=== PATIENT | female | born 1980 | race Caucasian/White ===

== ENCOUNTER → 2016-09-24 | Outpatient (CLI) | payer BC ==
[~2016-09-24] MED LIST: CIPR500T4 PO; DICY20TA59 PO; FAMO-18 PO; HYDR-3498 PO; METR500T PO; ONDA4TAB14 PO
[2016-09-24 15:10] LABS: ADD SCAN DIFF NO
[2016-09-24 15:12] LABS: BASOPHIL # 0.1 10^3/ul (0.0-0.1); BASOPHILS % 0.8 % (0.0-2.0); EOSINOPHILS # 0.4 10^3/ul (0.0-0.5); EOSINOPHILS % 4.8 % (0.0-7.0); HEMATOCRIT 41.2 % (37.0-47.0); HEMOGLOBIN 14.1 g/dl (12.0-16.0); LYMPHOCYTES # 2.3 10^3/ul (0.8-2.9); LYMPHOCYTES % 26.3 % (15.0-51.0); MEAN CORPUSCULAR HEMOGLOBIN 31.6 pg (29.0-33.0); MEAN CORPUSCULAR HGB CONC 34.2 g/dl (32.0-37.0); MEAN CORPUSCULAR VOLUME 92.4 fl (82.0-101.0); MEAN PLATELET VOLUME 13.2 fl (7.4-10.4); MONOCYTE # 0.4 10^3/ul (0.3-0.9); MONOCYTES % 4.7 % (0.0-11.0); NEUTROPHIL # 5.5 10^3/ul (1.6-7.5); NEUTROPHILS % 63.3 % (39.0-77.0); PLATELET COUNT 192 10^3/UL (140-415); RED BLOOD COUNT 4.46 10^6/ul (4.20-5.40); RED CELL DISTRIBUTION WIDTH 12.7 % (11.5-14.5); WHITE BLOOD COUNT 8.7 10^3/ul (4.8-10.8)
[2016-09-24 15:26] LABS: IRON 61 ug/dl (35-150)
[2016-09-24 15:34] LABS: ALBUMIN 4.1 g/dl (3.3-4.9); ALBUMIN/GLOBULIN RATIO 1.17; BILIRUBIN,INDIRECT 0.1 mg/dl (0-1.1); BILIRUBIN,TOTAL 0.1 mg/dl (0.2-1.3); CREATININE 0.84 mg/dl (0.44-1.00); TOTAL PROTEIN 7.6 g/dl (6.1-8.1)
[2016-09-24 15:35] LABS: TOTAL IRON BINDING CAPACITY 372 ug/dl (241-421)
[2016-09-24 16:05] LABS: THYROID STIMULATING HORMONE 1.85 MIU/L (0.465-4.680)
== END | disposition home or self-care (01) ==
LOC: LAB 14:37
PROVIDERS: ATTEND Internal Medicine
DX: E34.9 Endocrine disorder, unspecified (principal)
CPT/HCPCS: 80053; 82607; 82652; 82670; 83001; 83036; 83540; 84439; 84443; 85025; 85651

== ENCOUNTER → 2016-11-12 | Outpatient (CLI) | payer BC ==
--- NOTE | 2016-11-13 15:59 | RADRPT ---
PROCEDURE: US Thyroid. CLINICAL INDICATION: Neck Mass TECHNIQUE: Multiple sonographic images of the thyroid were obtained. Transverse and sagittal imagi ng of the gland and gómez-thyroidal tissues was performed with a high frequency linear array transduc er. Color interrogation was performed as well. The images were reviewed on a PACS workstation. COMPARISON: No prior studies are available for comparison. FINDINGS: The thyroid gland demonstrates normal size, shape and echogenicity. The right lobe of the thyroid gland measures 4.1 x 1.7 x 0.3 cm. There is a 3 mm hypoechoic nodule in the lower pole of the right lobe of the thyroid gland. The left lobe of the thyroid gland measures 4.0 x 1.9 x 1.8 cm. In the lower pole of left lobe of thyroid gland there is a heterogeneous hypoechoic nodule which kimberly sures 1.7 x 0.9 x 0.9 cm without calcification. The isthmus is of normal thickness. SRU Consesus Criteria for Management of Thyroid Nodules: Solitary nodule with microcalcifications: Strongly consider ultrasound-guided FNA if > 1 cm. Solitary solid nodule (or almost entirely solid) or coarse calcifications: Strongly consider US-maicol ded FNA if > 1.5 cm. Solitary mixed solid and cystic or almost entirely cystic with solid mural component: Consider US-g uided FNA if > 2 cm. None of the above but substantial growth since prior US examination: Consider US-guided FNA. Almost entirely cystic and none of the above and no substantial growth (or no prior US): US-guided FNA probably unnecessary. Multiple nodules: Consider US-guided FNA of one or more nodules, with selection based on criteria f or solitary nodule. * FNA is likely unnecessary in diffusely enlarged gland with multiple nodules of similar US appearan ce. *Presence of abnormal lymph nodes overrides US features of thyroid nodule(s) and should prompt US-gu ided FNA. SRU Consensus Conference Statement: Management of Thyroid Nodules Detected at US. RADIOLOGY 2005;2 [id number] IMPRESSION: 1. 1.7 cm hypoechoic nodule in the lower pole of left lobe of thyroid gland. Fine needle aspiratio n is suggested for further evaluation. 2. 3 mm hypoechoic nodule in the lower pole of the right lobe of thyroid gland. Continued surveill ance is suggested. RPTAT: QQ .Tobias Mcwilliams MD, MD Date Time Electronically viewed and signed by .Tobias Mcwilliams MD, on 11/13/2016 15:59 .M/
== END | disposition home or self-care (01) ==
LOC: U/S 16:31
PROVIDERS: ATTEND Internal Medicine
DX: R22.1 Localized swelling, mass and lump, neck (principal)
CPT/HCPCS: 76536

== ENCOUNTER → 2016-12-03 | Outpatient (CLI) | payer BC ==
[2016-12-03 08:48] LABS: ADD SCAN DIFF NO; BASOPHIL # 0.1 10^3/ul (0.0-0.1); BASOPHILS % 0.9 % (0.0-2.0); EOSINOPHILS # 0.1 10^3/ul (0.0-0.5); EOSINOPHILS % 1.6 % (0.0-7.0); HEMATOCRIT 41.8 % (37.0-47.0); HEMOGLOBIN 14.8 g/dl (12.0-16.0); LYMPHOCYTES # 2.8 10^3/ul (0.8-2.9); LYMPHOCYTES % 34.8 % (15.0-51.0); MEAN CORPUSCULAR HGB CONC 35.4 g/dl (32.0-37.0); MEAN CORPUSCULAR VOLUME 90.5 fl (82.0-101.0); MEAN PLATELET VOLUME 12.9 fl (7.4-10.4); MONOCYTE # 0.4 10^3/ul (0.3-0.9); MONOCYTES % 4.4 % (0.0-11.0); NEUTROPHIL # 4.6 10^3/ul (1.6-7.5); NEUTROPHILS % 58.2 % (39.0-77.0); PLATELET COUNT 197 10^3/UL (140-415); RED BLOOD COUNT 4.62 10^6/ul (4.20-5.40); RED CELL DISTRIBUTION WIDTH 13.1 % (11.5-14.5); WHITE BLOOD COUNT 7.9 10^3/ul (4.8-10.8)
[2016-12-03 09:04] LABS: CREATININE 0.9 mg/dl (0.44-1.00)
[2016-12-03 09:06] LABS: INR 0.93; PARTIAL THROMBOPLASTIN TIME 31.4 Sec (25.0-35.0); PROTIME 12.5 Sec (12.2-14.2)
== END | disposition home or self-care (01) ==
LOC: LAB 08:23
PROVIDERS: ATTEND Internal Medicine
DX: E07.9 Disorder of thyroid, unspecified (principal)
CPT/HCPCS: 82565; 84520; 85025; 85610; 85730

== ENCOUNTER → 2017-08-09 | Outpatient (CLI) | END | disposition home or self-care (01) ==

== ENCOUNTER → 2018-07-25 | Outpatient (CLI) | payer BC ==
[~2018-07-25] MED LIST changes: -FAMO-18 PO; +FAMO-96 PO
== END | disposition home or self-care (01) ==
LOC: LAB 13:05
PROVIDERS: ATTEND Obstetrics & Gynecology
DX: N39.0 Urinary tract infection, site not specified (principal)
CPT/HCPCS: 87086

== ENCOUNTER → 2018-07-26 | Outpatient (CLI) | payer BC ==
[~2018-07-26] MED LIST changes: +IOHEXOL 300MG/ML 150 ML BTL ONE; +SOD CHLORIDE 0.9% 100 ML ONE
--- NOTE | 2018-07-26 15:50 | NUR ---
Procedure Ordered: CT ABD PEL W/WO Reason for Exam Today: ACUTE DIVERTICULITIS VS OVARIAN PAIN Previous Exams: Allergies: Current Medications Taken: Glucophage ( ) Metformin ( ) Previous reaction to contrast media: Yes ( ) No (X ) : Yes ( ) No (X ) Asthma: Yes ( ) No X ) Diabetes: Yes ( ) No ( X) Myeloma: Yes ( ) No (X ) Heart Disease: Yes ( ) No (X ) Cardiac Disease: Yes ( ) No ( X) Kidney Disease: Yes ( ) No ( X) Vascular Disease: Yes ( ) No (X ) Patient Teaching done: Yes ( X) No ( ) Math Teacher Used: Yes ( ) No ( X) Name of Math Teacher: Language Used: As part of the test requested by your doctor, contrast media may be injected into your vein while the x-rays are being taken. Occasionally, reactions from IV contrast may occur. The physician and staff of this hospital are trained to treat these reactions. Select the type of Contrast that will be given to patient: Omnipaque 300 ( X) Omnipaque 350 ( ) Visipaque 320 ( ) Cystografin ( ) Gastrographin ( ) Redi-cat ( ) Volumen ( ) Amount of contrast to be given: 95CC IV (X ) PO ( ) Date given: 07/26/18 Lab Values: BUN: 10 Creatinine: 0.8 eGFR: Reason why contrast cannot be given: Location of patient pre-procedure: OUTPT Location of patient post procedure:OUTPT Patient tolerated exam welL.
== END | disposition home or self-care (01) ==
LOC: C/S 14:08
PROVIDERS: ATTEND Internal Medicine
DX: R10.9 Unspecified abdominal pain (principal)
CPT/HCPCS: 74178; Q9967